=== PATIENT | male | born 1965 | race Caucasian/White ===

== ENCOUNTER 2018-06-26 06:36 | Inpatient (IN) ==
[2018-06-26] MEDS ORDERED: Morphine Inj 4 MG/ML Vial IV.PUSH ONE (07:12)
[2018-06-26] MEDS ORDERED: Diatrizoate Meglum/Diatrizoate Sod Liq 9 ML UDC PO ONE (07:12)
[2018-06-26] MEDS ORDERED: Sod Chloride 0.9% Inj 1,000 ML IV.SIG ONE (07:12)
--- NOTE | 2018-06-26 07:17 | ED ---
HPI General Chief Complaint: Abdominal Pain Stated Complaint: Abd pain Time Seen by Provider: 06/26/18 07:05 Source: patient Mode of arrival: ambulatory Limitations: no limitations History of Present Illness HPI narrative: The patient is a 52-year-old male with history of diverticulosis diagnosed last May and another flareup this past May currently on his third antibiotic for abdominal pain for over a week. Patient stated he ate some kind of a pizza and after that started having pain. His primary put him initially on Cipro without any relief after 3 days and then they added Bactrim and right now he is on Flagyl and Bactrim. Denies any fever or chills. Admits to nausea. Lower abdominal pain and decreased appetite. MD complaint: Reports abdominal pain Onset (ago): week(s) (1) Pain Consistency: constant Location: Reports LLQ Severity: moderate Severity scale (1-10): 5 Quality: Reports stabbing Radiation: Reports none Migration to: Reports no migration Relieving factors: nothing Associated symptoms: Reports nausea and hematuria; Denies vomiting, diarrhea, fever, chills, constipation, dysuria, hematemesis, hematochezia, melena, anorexia and syncope Related Data Home Medications Medication Instructions Recorded Confirmed No Known Home Medications 06/26/18 06/26/18 Allergies Allergy/AdvReac Type Severity Reaction Status Date / Time No Known Allergies Allergy Uncoded 08/21/12 16:02 Review of Systems ROS: all other systems reviewed are negative PMFSH Medical History Medical History Patient denies significant medical history (Acute) Surgical History Surgical History History of back surgery (Acute) History of cholecystectomy (Acute) Social History Social History Substance History: No History of Abuse Second Hand Smoke Exposure: No Smoking Status: Current every day smoker Tobacco Type: Cigarettes How Often Do You Have a Drink Containing Alcohol: Never Recent Travel in [facility] within the Last 8 Weeks: No Recent Out of Country Travel within the Last 8 Weeks: No Immunization History Tetanus Immunization: Unsure Exam Narrative Exam Narrative: GENERAL: Alert and oriented in no distress well-nourished well- developed SKIN: Focused skin assessment warm/dry. HEAD: Atraumatic. Normocephalic. EYES: Pupils equal and round. No scleral icterus. No injection or drainage. ENT: No nasal bleeding or discharge. Mucous membranes pink and moist. NECK: Trachea midline. No JVD. CARDIOVASCULAR: Regular rate and rhythm. No murmur appreciated. RESPIRATORY: No accessory muscle use. Clear to auscultation. Breath sounds equal bilaterally. GASTROINTESTINAL: Abdomen soft, Tenderness over the left lower quadrant. Hypoactive bowel sounds.. Hepatic and splenic margins not palpable. MUSCULOSKELETAL: No obvious deformities. No clubbing. No cyanosis. No edema. NEUROLOGICAL: Awake and alert. No obvious cranial nerve deficits. Motor grossly within normal limits. Normal speech. PSYCHIATRIC: Appropriate mood and affect; insight and judgment normal. Course Reevaluation(s) Reevaluation #1: Resting comfortably no distress. Notified about the findings on CT and plan of admitting. Time: 09:18 Initial Documented Vital Signs Temperature 97.6 F 06/26/18 06:38 Pulse Rate 73 06/26/18 06:38 Respiratory Rate 18 06/26/18 06:38 Blood Pressure 151/70 H 06/26/18 06:38 Pulse Oximetry 96 06/26/18 06:38 Last Documented Vital Signs Temperature 98.6 F 06/27/18 16:00 Pulse Rate 65 06/27/18 16:00 Respiratory Rate 17 06/27/18 16:00 Blood Pressure 124/62 06/27/18 16:00 Pulse Oximetry 95 06/27/18 16:00 Medical Decision Making [facility] Narrative Medical decision making narrative: Patient with acute sigmoid diverticulitis and small abscess formation that as per imaging is not drainable at this time. Patient to receive IV Zosyn to the fact that he was already on Cipro Flagyl and Bactrim. Will be admitted for further evaluation and surgical consultation. Not appearing septic. No signs of perforation at this time lactate within normal limits mildly elevated WBC. Liver enzymes are also elevated. He is afebrile with stable vitals. Cultures were obtained. Medical Screen Exam Complete: Yes Emergency Medical Condition: Yes Medical Records Medical records reviewed: Yes I reviewed the patient's medical records. Lab Data Lab results reviewed: Yes I reviewed the patient's lab results. Result diagrams: 06/27/18 04:59 06/27/18 10:37 Lab Results 06/26/18 06/26/18 06/26/18 Range/Units 07:00 07:00 07:25 WBC 11.5 H (4.0-11.0) th/mm3 RBC 4.70 (4.50-5.90) mil/mm3 Hgb 14.6 (13.0-17.0) gm/dL Hct 42.0 (39.0-51.0) % MCV 89.4 (80.0-100.0) fL MCH 31.1 (27.0-34.0) pg MCHC 34.8 (32.0-36.0) % RDW 14.3 (11.6-17.2) % Plt Count 464 H (150-450) th/mm3 MPV 7.6 (7.0-11.0) fL Neut % (Auto) 80.8 H (16.0-70.0) % Lymph % (Auto) 6.6 L (9.0-44.0) % [place] % (Auto) 9.0 H (0.0-8.0) % Eos % (Auto) 3.3 (0.0-4.0) % Baso % (Auto) 0.3 (0.0-2.0) % Neut # (Auto) 9.3 H (1.8-7.7) th/mm3 Lymph # (Auto) 0.8 L (1.0-4.8) th/mm3 [place] # (Auto) 1.0 H (0.0-0.9) th/mm3 Eos # (Auto) 0.4 (0.0-0.4) th/mm3 Baso # (Auto) 0.0 (0.0-0.2) th/mm3 WBC Differential . Differential Comment Auto diff final Sodium 132 L (136-145) meq/L Potassium 4.3 (3.5-5.1) meq/L Chloride 94 L (98-107) meq/L Carbon Dioxide 30.3 (21.0-32.0) meq/L Anion Gap 8 (5-15) meq/L BUN 13 (7-18) mg/dL Creatinine 1.13 (0.60-1.30) mg/dL Estimated GFR 68 L (>89) mL/min Random Glucose 177 H (74-106) mg/dL Lactic Acid 1.1 (0.4-2.0) mmol/L Calcium 9.0 (8.5-10.1) mg/dL Magnesium 2.4 (1.5-2.5) mg/dL Total Bilirubin 1.0 (0.2-1.0) mg/dL AST 53 H (15-37) U/L ALT 81 H (12-78) U/L Alkaline Phosphatase 285 H (45-117) U/L Total Protein 8.0 (6.4-8.2) g/dL Albumin 2.5 L (3.4-5.0) g/dL Lipase 102 (73-393) U/L Urine Color (Yellw/Straw) Urine Clarity (Clear) Urine pH (5.0-8.5) Ur Specific [place] (1.002-1.035) Urine Protein (Neg-Trace) mg/dL Urine Glucose (UA) (Negative) mg/dL Urine Ketones (Negative) mg/dL Urine Occult Blood (Negative) Urine Nitrate (Negative) Urine Bilirubin (Negative) Urine Urobilinogen (Less than 2) mg/dL Ur Leukocyte Esterase (Negative) Urine RBC (0-3) /hpf Urine WBC (0-5) /hpf Urine Mucus (Occasional) /lpf Micro UA Comment Ur Microscopic Review Urine Culture Comments 06/26/18 06/27/18 06/27/18 Range/Units 08:30 04:59 10:37 WBC 8.5 (4.0-11.0) th/mm3 RBC 4.21 L (4.50-5.90) mil/mm3 Hgb 12.9 L (13.0-17.0) gm/dL Hct 37.3 L (39.0-51.0) % MCV 88.6 (80.0-100.0) fL MCH 30.5 (27.0-34.0) pg MCHC 34.5 (32.0-36.0) % RDW 14.4 (11.6-17.2) % Plt Count 455 H (150-450) th/mm3 MPV 7.1 (7.0-11.0) fL Neut % (Auto) 69.4 (16.0-70.0) % Lymph % (Auto) 10.2 (9.0-44.0) % [place] % (Auto) 12.5 H (0.0-8.0) % Eos % (Auto) 7.0 H (0.0-4.0) % Baso % (Auto) 0.9 (0.0-2.0) % Neut # (Auto) 5.9 (1.8-7.7) th/mm3 Lymph # (Auto) 0.9 L (1.0-4.8) th/mm3 [place] # (Auto) 1.1 H (0.0-0.9) th/mm3 Eos # (Auto) 0.6 H (0.0-0.4) th/mm3 Baso # (Auto) 0.1 (0.0-0.2) th/mm3 WBC Differential . Differential Comment Auto diff final Sodium 137 (136-145) meq/L Potassium 3.8 (3.5-5.1) meq/L Chloride 99 (98-107) meq/L Carbon Dioxide 33.0 H (21.0-32.0) meq/L Anion Gap 5 (5-15) meq/L BUN 8 (7-18) mg/dL Creatinine 0.95 (0.60-1.30) mg/dL Estimated GFR 83 L (>89) mL/min Random Glucose 109 H (74-106) mg/dL Lactic Acid (0.4-2.0) mmol/L Calcium 8.3 L (8.5-10.1) mg/dL Magnesium (1.5-2.5) mg/dL Total Bilirubin (0.2-1.0) mg/dL AST (15-37) U/L ALT (12-78) U/L Alkaline Phosphatase (45-117) U/L Total Protein (6.4-8.2) g/dL Albumin (3.4-5.0) g/dL Lipase (73-393) U/L Urine Color Yellow (Yellw/Straw) Urine Clarity Clear (Clear) Urine pH 6.0 (5.0-8.5) Ur Specific [place] 1.008 (1.002-1.035) Urine Protein Negative (Neg-Trace) mg/dL Urine Glucose (UA) Negative (Negative) mg/dL Urine Ketones Negative (Negative) mg/dL Urine Occult Blood Negative (Negative) Urine Nitrate Negative (Negative) Urine Bilirubin Negative (Negative) Urine Urobilinogen Less than 2 (Less than 2) mg/dL Ur Leukocyte Esterase Trace H (Negative) Urine RBC 1 (0-3) /hpf Urine WBC Less than 1 (0-5) /hpf Urine Mucus Few H (Occasional) /lpf Micro UA Comment Culture not ind Ur Microscopic Review Not Reportable Urine Culture Comments Culture not ind Imaging Data Radiologist's impression: Abdomen/Pelvis CT 06/26/18 07:12 CONCLUSION: 1. Acute sigmoid diverticulitis with a small abscess adjacent to the sigmoid colon. This abscess is too small to accept a drainage catheter. 2. Prior cholecystectomy. Discharge Plan Discharge Disposition Patient Disposition: 30 Still Patient Discharge Condition Condition: Stable Discharge Details Diagnosis: Acute diverticulitis Physicians Team ED Provider: Rigoberto Fenton Primary Care Provider: Chau Aponte Attending Provider: Miko Fung Other Providers: Neri Myrick Discharge Interventions Interventions: ED Discharge Assessment Last Done: 06/26/18 11:09 Status ED Status: Left Department Discharge Information Discharge Date/Time: 06/26/18 11:09
[2018-06-26 07:47] LABS: Baso % (Auto) 0.3 % (0.0-2.0); Eos # (Auto) 0.4 th/mm3 (0.0-0.4); Eos % (Auto) 3.3 % (0.0-4.0); Hemoglobin 14.6 gm/dL (13.0-17.0); Lymph # (Auto) 0.8 th/mm3 (1.0-4.8); Lymph % (Auto) 6.6 % (9.0-44.0); Mean Corpuscular HGB Conc 34.8 % (32.0-36.0); Mean Corpuscular Hemoglobin 31.1 pg (27.0-34.0); Mean Corpuscular Volume 89.4 fL (80.0-100.0); Mean Platelet Volume 7.6 fL (7.0-11.0); Neut # (Auto) 9.3 th/mm3 (1.8-7.7); Neut % (Auto) 80.8 % (16.0-70.0); Platelet Count 464 th/mm3 (150-450); Red Cell Distribution Width 14.3 % (11.6-17.2); White Blood Count 11.5 th/mm3 (4.0-11.0)
[2018-06-26 08:12] LABS: Alanine Aminotransferase 81 U/L (12-78); Albumin 2.5 g/dL (3.4-5.0); Anion Gap 8 meq/L (5-15); Aspartate Aminotransferase 53 U/L (15-37); Blood Urea Nitrogen 13 mg/dL (7-18); Carbon Dioxide 30.3 meq/L (21.0-32.0); Chloride 94 meq/L (98-107); Glomerular Filtration Rate 68 mL/min (>89); Glucose,Random 177 mg/dL (74-106); Lipase 102 U/L (73-393); Magnesium 2.4 mg/dL (1.5-2.5); Sodium 132 meq/L (136-145)
[2018-06-26 08:14] LABS: Alkaline Phosphatase 285 U/L (45-117)
[2018-06-26 08:16] LABS: Potassium 4.3 meq/L (3.5-5.1)
--- NOTE | 2018-06-26 09:02 | CT ---
EXAM DATE: 06/26/2018 8:48 AM EST AGE/SEX: 52 years / Male INDICATIONS: Left lower abdominal pain. CLINICAL DATA: This is the patient's initial encounter. Patient reports that signs and symptoms have been present for 1 week and indicates a pain score of 6/10. MEDICAL/SURGICAL HISTORY: None. Cholecystectomy. Back surgery. ORAL CONTRAST: Prescribed oral contrast ingested. RADIATION DOSE: 9.90 CTDI (mGy) COMPARISON: [facility], CT UROGRAM, 12/13/2017. . TECHNIQUE: Multiple contiguous axial images were obtained through the abdomen and pelvis following b olus infusion of 95 ml Omnipaque 350 (iohexol) nonionic water-soluble contrast as a single exam dos e. Prescribed oral contrast ingested. Using automated exposure control and adjustment of the mA and/ or kV according to patient size, radiation dose was kept as low as reasonably achievable to obtain op timal diagnostic quality images. DICOM format image data is available electronically for review and comparison. FINDINGS: Lower Lungs: The visualized lower lungs are clear. Liver: The liver has a homogeneous density without space-occupying lesion. There is no dilation of th e biliary tree. Prior cholecystectomy. Spleen: Homogeneous density without enlargement. Pancreas: Unremarkable without mass or calcification. Kidneys: Normal in size and shape. No evidence of mass or hydronephrosis. Adrenal Glands: Unremarkable. Aorta: The aorta and proximal iliac vessels are grossly unremarkable without aneurysmal dilation. Bowel/Mesentery: There is an acute inflammatory process at the junction of the descending and sigmoi d colon. There is circumferential wall thickening with stranding of the pericolonic fat. A small extr aluminal fluid collection consistent with a small abscess is seen measured 3.7 x 1.0 cm. No perforati on observed. No obstruction.. Abdominal Wall: Intact. Retroperitoneum: No evidence of adenopathy in the retrocrural, para-aortic, or deep pelvic regions. Bladder: Contours are smooth. Reproductive Organs: No abnormal masses or calcifications seen. Inguinal: The inguinal region is unremarkable without evidence of adenopathy. Bony Structures: Unremarkable. CONCLUSION: 1. Acute sigmoid diverticulitis with a small abscess adjacent to the sigmoid colon. This abscess is too small to accept a drainage catheter. 2. Prior cholecystectomy. Electronically signed by: Jason Dennis MD 06/26/2018 9:01 AM EST
[2018-06-26] MEDS ORDERED: Piperacil/Tazo 4.5 GM Premix 4.5 GM/100 ML BAG IV.SIG ONE (09:18)
[2018-06-26 09:36] LABS: Bilirubin,Urine Negative (Negative); Clarity,Urine Clear (Clear); Color,Urine Yellow (Yellw/Straw); Glucose,Urine (UA) Negative (Negative); Leukocyte Esterase,Urine Trace (Negative); Mucus,Urine Few /lpf (Occasional); Nitrite,Urine Negative (Negative); Specific Gravity,Urine 1.008 (1.002-1.035)
[2018-06-26] MEDS ORDERED: Acetaminophen 325 MG Tablet PO PRN (10:20)
--- NOTE | 2018-06-26 11:57 | P.HPIM ---
History of Present Illness Primary Care Physician: Chau Aponte History of Present Illness: Mr Watson is a 52 y/o male with hx of diverticulitis, first episode in 05/2017 and second episode in 12/2017. Presented to the ED at [facility] on 06/26/18 with complaints of left sided abdominal pain that began about 8 days ago. He describes it as a sharp pain in the LLQ with abdominal pressure/bloating sensation. He initially thought he was obstructed/constipated and took a laxative last week with no relief. He was seen at Urgent care 6 days ago and was given a prescription for Cipro. The pain did not improve and he went back to the urgent care and was given prescription for Flagyl and Bactrim around 3-4 days ago but no improvement. He had a CT Abd/ Pelvis in the ED which noted acute sigmoid diverticulitis with a small abscess adjacent to the sigmoid colon, this abscess is too small to accept a drainage catheter and prior cholecystectomy. Pt also complains of testicular pain which has reportedly been present since his second episode of diverticulitis earlier this year. He reports that his urine has been "darker" but UA in the ED was negative for hematuria but he states that he has had issues recently with hematuria. He also complains of left sided testicular pain. He had a cystocope done because of the hematuria but he reports the cystoscope was negative. Past Medical Hx: Hx of diverticulitis Tobacco abuse Hx of anal fistula in 2017 Hx of colon polyps Diverticulosis Iron deficiency anemia Past Surgical Hx: Superficial fistulotomy in 11/[address] Piña Colonoscopy on 11/29/[address] Piña --> severe diverticulosis in the sigmoid and descending colon and a polyp in the sigmoid colon Cholecystectomy Lumbar surgery Knee Surgeries Shoulder surgery Family Hx: [place] Social Hx: (+) tobacco use, 40 pack year hx. Diagnosis (1) Acute diverticulitis: (2) Tobacco use: Inpatient Certification Inpatient Certification: I certify that the inpatient services were ordered in accordance with Medicare regulations governing the order. This includes certification that hospital inpatient services are reasonable and necessary and in the case of services not specified as inpatient-only under 42 CFR 419.22(n), that they are appropriately provided as inpatient services in accordance to with the 2-midnight benchmark under 43 CFR 412.3(e) Estimated Total Length of Stay (Days): 3 Plans for Post Hospital Care: Not yet determined Medications and Allergies Allergies Allergy/AdvReac Type Severity Reaction Status Date / Time No Known Allergies Allergy Uncoded 08/21/12 16:02 Home Medications Medication Instructions Recorded Confirmed Type No Known Home Medications 06/26/18 06/26/18 History Active Medications: Active Medications Acetaminophen (Tylenol) 650 mg PO Q4H PRN PRN Reason: Temp > 100.4 Sodium Chloride (Ns Inj) 1,000 mls @ 100 mls/hr IV.CONT .Q10H RAUL Piperacillin/Tazobactam/Dextrose (Zosyn 3.375 Gm Premix) 50 mls @ 100 mls/hr IV.SIG Q6H RAUL Ondansetron HCl (Zofran Inj) 4 mg IV.PUSH Q6H PRN PRN Reason: NAUSEA OR VOMITING Sodium Chloride (Ns Flush) 2 ml IV.FLUSH PRN PRN PRN Reason: FLUSH AFTER USING IV ACCESS Physical Exam Vital signs: Last Vital Signs Temp 97.6 F 06/26/18 06:38 Pulse 69 06/26/18 11:04 Resp 21 06/26/18 06:40 BP 115/71 06/26/18 11:04 Pulse Ox 98 06/26/18 11:04 Narrative: GENERAL: NAD, AAOx3 SKIN: Warm and dry. HEENT: Atraumatic. Normocephalic. Pupils equal and round. No scleral icterus. No injection or drainage. No nasal bleeding or discharge. Mucous membranes pink and moist. NECK: Trachea midline. No JVD. CARDIO: Regular RESP: CTA bilaterally. ABD: +BS, soft, nondistended, left sided tenderness to palpation, no guarding or rebound. EXT: Extremities without clubbing, cyanosis, or edema. No obvious deformities. NEURO: Awake and alert. No obvious cranial nerve deficits. Motor grossly within normal limits. Five out of 5 muscle strength in the arms and legs. Normal speech. PSYCH: Appropriate mood and affect; insight and judgment normal. Results Labs CBC & Chem 7: 06/26/18 07:00 06/26/18 07:00 Imaging Abdomen/Pelvis CT 06/26/18 07:12 CONCLUSION: 1. Acute sigmoid diverticulitis with a small abscess adjacent to the sigmoid colon. This abscess is too small to accept a drainage catheter. 2. Prior cholecystectomy. Caprini VTE Risk Assessment Caprini VTE Risk Assessment: No/Low Risk (score <= 1) Caprini Risk Assessment Model: Point Value = 1 Point Value = 2 Point Value = 3 Point Value = 5 Age 41-60 Minor surgery BMI > 25 kg/m2 Swollen legs Varicose veins or History of unexplained or recurrent spontaneous Oral contraceptives or hormone replacement Sepsis (< 1 month) Serious lung disease, including pneumonia (< 1 month) Abnormal pulmonary function Acute myocardial infarction Congestive heart failure (< 1 month) History of inflammatory bowel disease Medical patient at bed rest Age 61-74 Arthroscopic surgery Major open surgery (> 45 min) Laparoscopic surgery (> 45 min) Malignancy Confined to bed (> 72 hours) Immobilizing plaster cast Central venous access Age >= 75 History of VTE Family history of VTE Factor V Leiden Prothrombin [id number] Lupus anticoagulant Anticardiolipin antibodies Elevated serum homocysteine Heparin-induced thrombocytopenia Other congenital or acquired thrombophilia Stroke (< 1 month) Elective arthroplasty Hip, pelvis, or leg fracture Acute spinal cord injury (< 1 month) Prophylaxis Regimen: Total Risk Factor Score Risk Level Prophylaxis Regimen 0-1 Low Early ambulation 2 Moderate Order ONE of the following: *Sequential Compression Device (SCD) *Heparin 5000 units SQ BID 3-4 Higher Order ONE of the following medications: *Heparin 5000 units SQ TID *Enoxaparin/Lovenox 40 mg SQ daily (WT < 150 kg, CrCl > 30 mL/min) *Enoxaparin/Lovenox 30 mg SQ daily (WT < 150 kg, CrCl > 10-29 mL/min) *Enoxaparin/Lovenox 30 mg SQ BID (WT < 150 kg, CrCl > 30 mL/min) AND/OR *Sequential Compression Device (SCD) 5 or more Highest Order ONE of the following medications: *Heparin 5000 units SQ TID (Preferred with Epidurals) *Enoxaparin/Lovenox 40 mg SQ daily (WT < 150 kg, CrCl > 30 mL/min) *Enoxaparin/Lovenox 30 mg SQ daily (WT < 150 kg, CrCl > 10-29 mL/min) *Enoxaparin/Lovenox 30 mg SQ BID (WT < 150 kg, CrCl > 30 mL/min) AND *Sequential Compression Device (SCD) Assessment and Plan Assessment (1) Acute diverticulitis: Code(s): K57.92 - Diverticulitis of intestine, part unspecified, without perforation or abscess without bleeding Status: Acute (2) Tobacco use: Code(s): Z72.0 - Tobacco use Status: Chronic Plan Acute diverticulitis - Pt is a 52 y/o male with hx of diverticulitis, first episode in 05/2017 and second episode in 12/2017. He had a previous colonoscopy on 11/29/[address] Piña which noted severe diverticulosis in the sigmoid and descending colon and a polyp in the sigmoid colon. He presented to the ED at [facility] on 06/26/18 with complaints of left sided abdominal pain that began about 8 days ago. He describes it as a sharp pain in the LLQ with abdominal pressure/bloating sensation. He initially thought he was obstructed/constipated and took a laxative last week with no relief. He was seen at Urgent care 6 days ago and was given a prescription for Cipro. The pain did not improve and he went back to the urgent care and was given prescription for Flagyl and Bactrim around 3-4 days ago but no improvement. This is what prompted his evaluated in the ED. - Labs noted an elevated WBC count at admission - He had a CT Abd/Pelvis in the ED which noted acute sigmoid diverticulitis with a small abscess adjacent to the sigmoid colon, this abscess is too small to accept a drainage catheter and prior cholecystectomy. - Pt was given Zosyn in the ED and we will continue this at 3.375mg Q6H dosing. - Give IVF - Ok for liquid diet for now - Pain control PRN - We will consult CRS, pt previously established with Dr. Piña. - Supportive care Tobacco use - Discussed tobacco cessation - Nicotine patch Testicular pain Hx of hematuria - Pt also complains of left sided testicular pain which has reportedly been present since his second episode of diverticulitis earlier this year. - He reports that his urine has been "darker" but UA in the ED was negative for hematuria but he states that he has had issues earlier this year with hematuria. - He had a cystocope done because of the hematuria but he reports the cystoscope was negative. - Its unclear if this left sided testicular pain may be related to referred pain from his diverticulitis vs. other. Attending Attestation Patient examined. Assessment and plan formulated with Rachel Vences PA-C. I agree with the above. complicated diverticulitis. consult CRS cont abx/pain meds/ivf/liquid diet.
[2018-06-26] MEDS ORDERED: Influenza (Quadrivalent) Vaccine 0.5 ML Syringe IM ONE (13:15)
[2018-06-26] MEDS: Sod Chloride 0.9% Inj 1,000 ML IV.CONT SCH (13:32)
[2018-06-26] MEDS: Piperacil/Tazo 3.375 GM Premix 50 ML IV.SIG SCH (18:37)
[2018-06-27] MEDS: Piperacil/Tazo 3.375 GM Premix 50 ML IV.SIG SCH ×6 (00:06→23:26)
[2018-06-27] MEDS: Sod Chloride 0.9% Inj 1,000 ML IV.CONT SCH ×3 (00:06→18:34)
[2018-06-27 05:24] LABS: Baso # (Auto) 0.1 th/mm3 (0.0-0.2); Baso % (Auto) 0.9 % (0.0-2.0); Eos # (Auto) 0.6 th/mm3 (0.0-0.4); Hematocrit 37.3 % (39.0-51.0); Hemoglobin 12.9 gm/dL (13.0-17.0); Lymph # (Auto) 0.9 th/mm3 (1.0-4.8); Lymph % (Auto) 10.2 % (9.0-44.0); Mean Corpuscular HGB Conc 34.5 % (32.0-36.0); Mean Corpuscular Hemoglobin 30.5 pg (27.0-34.0); Mean Corpuscular Volume 88.6 fL (80.0-100.0); Mean Platelet Volume 7.1 fL (7.0-11.0); Mono # (Auto) 1.1 th/mm3 (0.0-0.9); Mono % (Auto) 12.5 % (0.0-8.0); Neut # (Auto) 5.9 th/mm3 (1.8-7.7); Neut % (Auto) 69.4 % (16.0-70.0); Platelet Count 455 th/mm3 (150-450); Red Blood Count 4.21 mil/mm3 (4.50-5.90); Red Cell Distribution Width 14.4 % (11.6-17.2); White Blood Count 8.5 th/mm3 (4.0-11.0)
[2018-06-27 11:56] LABS: Calcium 8.3 mg/dL (8.5-10.1); Potassium 3.8 meq/L (3.5-5.1)
--- NOTE | 2018-06-27 13:40 | P.PNIM ---
Subjective Interval history: Pt feeling better today Less pain Passed a small loose stool, no melena or BRBPR Tolerating full liquid diet Physical Exam Vital signs: Last Vital Signs Temp 99.0 F 06/27/18 12:00 Pulse 58 L 06/27/18 12:00 Resp 17 06/27/18 12:00 BP 111/63 06/27/18 12:00 Pulse Ox 96 06/27/18 12:00 Narrative: GENERAL: NAD, AAOx3 CARDIO: Regular RESP: CTA bilaterally. ABD: +BS, soft, nondistended, left sided tenderness to palpation, no guarding or rebound. EXT: No edema. No obvious deformities. Results Labs CBC & Chem 7: 06/27/18 04:59 06/27/18 10:37 Imaging Abdomen/Pelvis CT 06/26/18 07:12 CONCLUSION: 1. Acute sigmoid diverticulitis with a small abscess adjacent to the sigmoid colon. This abscess is too small to accept a drainage catheter. 2. Prior cholecystectomy. Assessment and Plan Assessment (1) Acute diverticulitis: Code(s): K57.92 - Diverticulitis of intestine, part unspecified, without perforation or abscess without bleeding Status: Acute (2) Tobacco use: Code(s): Z72.0 - Tobacco use Status: Chronic Plan Acute diverticulitis - Pt is a 52 y/o male with hx of diverticulitis, first episode in 05/2017 and second episode in 12/2017. He had a previous colonoscopy on 11/29/[address] Piña which noted severe diverticulosis in the sigmoid and descending colon and a polyp in the sigmoid colon. He presented to the ED at [facility] on 06/26/18 with complaints of left sided abdominal pain that began about 8 days ago. He describes it as a sharp pain in the LLQ with abdominal pressure/bloating sensation. He initially thought he was obstructed/constipated and took a laxative last week with no relief. He was seen at Urgent care 6 days ago and was given a prescription for Cipro. The pain did not improve and he went back to the urgent care and was given prescription for Flagyl and Bactrim around 3-4 days ago but no improvement. This is what prompted his evaluated in the ED. - Labs noted an elevated WBC count at admission - He had a CT Abd/Pelvis in the ED which noted acute sigmoid diverticulitis with a small abscess adjacent to the sigmoid colon, this abscess is too small to accept a drainage catheter and prior cholecystectomy. - Pt was given Zosyn in the ED and we will continue this at 3.375mg Q6H dosing. - IVF - Consult to Colorectal Surgery - Full liquid diet until seen by CRS - Pain control PRN - Supportive care Tobacco use - Discussed tobacco cessation - Nicotine patch Testicular pain Hx of hematuria - Pt also complains of left sided testicular pain which has reportedly been present since his second episode of diverticulitis earlier this year. - He reports that his urine has been "darker" but UA in the ED was negative for hematuria but he states that he has had issues earlier this year with hematuria. - He had a cystocope done because of the hematuria but he reports the cystoscope was negative. - Its unclear if this left sided testicular pain may be related to referred pain from his diverticulitis vs. other. Attending Attestation Patient examined. Assessment and plan formulated with Rachel Vences PA-C. I agree with the above. pt with complicated diverticulitis. recurrent. cont abx. ivf. liquids CRS consultation pending. Progress Note: Quality VTE Deep Vein Thrombosis/Pulmonary Embolism Present on Admission: No
--- NOTE | 2018-06-27 23:22 | MB ---
cc: Neri Myrick MD, Andrew H MD DATE: 06/27/2018 REASON FOR CONSULTATION: Recurrent diverticulitis. HISTORY OF PRESENT ILLNESS: Mr. Whiting is a pleasant 52-year-old male seen previously by Dr. Piña for some anorectal problems. Last colonoscopy was pretty unremarkable. He was diagnosed with some diverticular disease last May. He appeared to have another flare-up earlier this year in December. The patient currently has had 2 or 3 weeks of abdominal pain, mostly in the left lower quadrant treated as an outpatient with antibiotics. The pain has been fairly severe, but has gotten somewhat better with treatment. He was initially treated with Cipro and then Bactrim and Flagyl were added. Denies any significant nausea or vomiting. No fever or chills. The pain apparently had not subsided sufficiently so he came to the emergency room for evaluation. CT scan showed acute diverticulitis with a small microperforation adjacent to the sigmoid colon. He was admitted for additional evaluation and antibiotics. PAST MEDICAL HISTORY: Please see his history and physical and consult other ER visits for more complete past medical and surgical history. PERTINENT PHYSICAL EXAMINATION: GENERAL: A very pleasant large male in no acute distress. HEENT: Remarkable for pink, dry membranes. Nonicteric sclerae. NECK: Supple without gross adenopathy. CHEST: Diminished in the bases, clear anteriorly. HEART: Regular rhythm. ABDOMEN: Soft, benign. There is some tenderness in the lower left abdomen. No rebound or guarding or any masses noted. EXTREMITIES: Show no cyanosis or clubbing and no significant pedal edema. LABORATORY STUDIES: White count has gone down to 8.5, hemoglobin down to 12.9, platelet count 455,000. Electrolytes remarkable for a BUN of 8, creatinine of 0.95. Alkaline phosphatase, SGOT and SGPT are slightly elevated with a normal bilirubin. Albumin is low at 2.5. CT scan was reviewed showing some diverticular disease with a small microperforation adjacent to the sigmoid colon, too small for percutaneous drainage. A prior cholecystectomy was noted. IMPRESSION: A 52-year-old male with multiple attacks of left lower quadrant pain, presumed to be diverticular in origin. We would like to review his prior CT scans, see if he has had consistent inflammation of the rectosigmoid. Last colonoscopy was reportedly pretty unremarkable, seems to responding to present bowel rest and stronger IV antibiotics, see if we cannot cool him off with appropriate antibiotics and slowly advance his diet. If he continues to do well, could potentially be continued in outpatient treatment with oral antibiotics and then followed up in the office by Dr. Piña for possible elective surgery if needed. Neri Myrick MD AHR/ct , 10:55 PM , 11:03 PM
[2018-06-28 05:36] LABS: Baso # (Auto) 0.1 th/mm3 (0.0-0.2); Baso % (Auto) 0.9 % (0.0-2.0); Eos # (Auto) 0.3 th/mm3 (0.0-0.4); Hematocrit 38.2 % (39.0-51.0); Hemoglobin 12.9 gm/dL (13.0-17.0); Lymph # (Auto) 0.8 th/mm3 (1.0-4.8); Lymph % (Auto) 9.7 % (9.0-44.0); Mean Corpuscular HGB Conc 33.7 % (32.0-36.0); Mean Corpuscular Hemoglobin 30.3 pg (27.0-34.0); Mean Corpuscular Volume 89.9 fL (80.0-100.0); Mean Platelet Volume 7.2 fL (7.0-11.0); Mono # (Auto) 1.1 th/mm3 (0.0-0.9); Mono % (Auto) 12.9 % (0.0-8.0); Neut # (Auto) 6.2 th/mm3 (1.8-7.7); Neut % (Auto) 72.5 % (16.0-70.0); Platelet Count 502 th/mm3 (150-450); Red Blood Count 4.25 mil/mm3 (4.50-5.90); Red Cell Distribution Width 14.7 % (11.6-17.2); White Blood Count 8.5 th/mm3 (4.0-11.0)
[2018-06-28 06:12] LABS: Alanine Aminotransferase 59 U/L (12-78); Albumin 2.1 g/dL (3.4-5.0); Anion Gap 7 meq/L (5-15); Aspartate Aminotransferase 42 U/L (15-37); Blood Urea Nitrogen 5 mg/dL (7-18); Calcium 8.1 mg/dL (8.5-10.1); Carbon Dioxide 29.5 meq/L (21.0-32.0); Chloride 102 meq/L (98-107); Glomerular Filtration Rate 82 mL/min (>89); Glucose,Random 94 mg/dL (74-106); Sodium 138 meq/L (136-145)
[2018-06-28 06:14] LABS: Alkaline Phosphatase 243 U/L (45-117); Total Protein 6.4 g/dL (6.4-8.2)
[2018-06-28] MEDS: Piperacil/Tazo 3.375 GM Premix 50 ML IV.SIG SCH ×2 (06:34→11:10)
[2018-06-28] MEDS: Sod Chloride 0.9% Inj 1,000 ML IV.CONT SCH (09:29)
--- NOTE | 2018-06-28 11:11 | P.DS ---
DS: Providers Date of admission: 06/26/18 10:01 Primary care physician: Chau Aponte Consults: 06/27/18 09:35 Consult to Colorectal Surgery Routine Consulting Provider: Neri Myrick Preferred Game Designer:: Neri Myrick Patient known to:: Madyson Piña Reason for Consultation: Recurrent Diverticulitis with small abscess Notified:: Office Spoke with:: Susan Date Notified:: 06/27/18 Time Notified:: 10:26 Ordering Provider: SUNNY Brief History from admission: Mr Watson is a 52 y/o male with hx of diverticulitis, first episode in 05/2017 and second episode in 12/2017. Presented to the ED at [facility] on 06/26/18 with complaints of left sided abdominal pain that began about 8 days ago. He describes it as a sharp pain in the LLQ with abdominal pressure/bloating sensation. He initially thought he was obstructed/constipated and took a laxative last week with no relief. He was seen at Urgent care 6 days ago and was given a prescription for Cipro. The pain did not improve and he went back to the urgent care and was given prescription for Flagyl and Bactrim around 3-4 days ago but no improvement. He had a CT Abd/ Pelvis in the ED which noted acute sigmoid diverticulitis with a small abscess adjacent to the sigmoid colon, this abscess is too small to accept a drainage catheter and prior cholecystectomy. Pt also complains of testicular pain which has reportedly been present since his second episode of diverticulitis earlier this year. He reports that his urine has been "darker" but UA in the ED was negative for hematuria but he states that he has had issues recently with hematuria. He also complains of left sided testicular pain. He had a cystocope done because of the hematuria but he reports the cystoscope was negative. Past Medical Hx: Hx of diverticulitis Tobacco abuse Hx of anal fistula in 2017 Hx of colon polyps Diverticulosis Iron deficiency anemia Past Surgical Hx: Superficial fistulotomy in 11/[address] Piña Colonoscopy on 11/29/[address] Piña --> severe diverticulosis in the sigmoid and descending colon and a polyp in the sigmoid colon Cholecystectomy Lumbar surgery Knee Surgeries Shoulder surgery Family Hx: [place] Social Hx: (+) tobacco use, 40 pack year hx. DS: Diagnosis Discharge Diagnosis (1) Acute diverticulitis: Status: Acute (2) Tobacco use: Status: Chronic DS: Summary Acute diverticulitis - Pt is a 52 y/o male with hx of diverticulitis, first episode in 05/2017 and second episode in 12/2017. He had a previous colonoscopy on 11/29/[address] Piña which noted severe diverticulosis in the sigmoid and descending colon and a polyp in the sigmoid colon. He presented to the ED at [facility] on 06/26/18 with complaints of left sided abdominal pain that began about 8 days ago. He describes it as a sharp pain in the LLQ with abdominal pressure/bloating sensation. He initially thought he was obstructed/constipated and took a laxative last week with no relief. He was seen at Urgent care 6 days ago and was given a prescription for Cipro. The pain did not improve and he went back to the urgent care and was given prescription for Flagyl and Bactrim around 3-4 days ago but no improvement. This is what prompted his evaluated in the ED. - Labs noted an elevated WBC count at admission - He had a CT Abd/Pelvis in the ED which noted acute sigmoid diverticulitis with a small abscess adjacent to the sigmoid colon, this abscess is too small to accept a drainage catheter and prior cholecystectomy. - Pt was given Zosyn in the ED and we will continue this at 3.375mg Q6H dosing. - IVF - Consult to Colorectal Surgery, appreciate input. No need for immediate surgery will need to follow up after DC for close follow up and possible elective surgery - Full liquid diet - Pain control PRN - Supportive care Tobacco use - Discussed tobacco cessation - Nicotine patch Testicular pain Hx of hematuria - Pt also complains of left sided testicular pain which has reportedly been present since his second episode of diverticulitis earlier this year. - He reports that his urine has been "darker" but UA in the ED was negative for hematuria but he states that he has had issues earlier this year with hematuria. - He had a cystocope done because of the hematuria but he reports the cystoscope was negative. - Its unclear if this left sided testicular pain may be related to referred pain from his diverticulitis vs. other. testicular pain has improved with current treatment - likely testicular pain was referred pain from diverticulitis Patient reports feeling much better is asking to be discharged home will DC on cipro/Flagyl for a total of 14 days Time Spent with Patient Total time spent providing and/or coordinating discharge services: Quality: VTE Deep Vein Thrombosis/Pulmonary Embolism Present on Admission: No Exam Narrative Exam Narrative: GENERAL: NAD, AAOx3 CARDIO: Regular RESP: CTA bilaterally. ABD: +BS, soft, nondistended, mild left sided tenderness to palpation, no guarding or rebound. EXT: No edema. No obvious deformities. Results Labs on day of discharge: Labs from last 24 hours 06/28/18 06/28/18 06/27/18 04:44 04:44 10:37 WBC 8.5 RBC 4.25 L Hgb 12.9 L Hct 38.2 L MCV 89.9 MCH 30.3 MCHC 33.7 RDW 14.7 Plt Count 502 H MPV 7.2 Neut % (Auto) 72.5 H Lymph % (Auto) 9.7 [place] % (Auto) 12.9 H Eos % (Auto) 4.0 Baso % (Auto) 0.9 Neut # (Auto) 6.2 Lymph # (Auto) 0.8 L [place] # (Auto) 1.1 H Eos # (Auto) 0.3 Baso # (Auto) 0.1 WBC Differential . Differential Comment Auto diff final Sodium 138 137 Potassium 4.0 3.8 Chloride 102 99 Carbon Dioxide 29.5 33.0 H Anion Gap 7 5 BUN 5 L 8 Creatinine 0.96 0.95 Estimated GFR 82 L 83 L Random Glucose 94 109 H Calcium 8.1 L 8.3 L Total Bilirubin 0.6 AST 42 H ALT 59 Alkaline Phosphatase 243 H Total Protein 6.4 D Albumin 2.1 L Preliminary micro results at discharge 06/26/18 07:25 Aerobic Blood Culture - Preliminary Blood - Peripheral No growth in 2 days Anaerobic Blood Culture - Preliminary No growth in 2 days 06/26/18 07:30 Aerobic Blood Culture - Preliminary Blood - Peripheral No growth in 2 days Impressions ITS Impressions Abdomen/Pelvis CT 06/26/18 07:12 CONCLUSION: 1. Acute sigmoid diverticulitis with a small abscess adjacent to the sigmoid colon. This abscess is too small to accept a drainage catheter. 2. Prior cholecystectomy.
[2018-06-28 12:17] VITALS: BP 130/67; PULSE 61; RESP 18; TEMP 98.9; O2SAT 97
== END 2018-06-28 16:55 | disposition home or self-care (01) ==
LOC: NEPC 06:36 → NEDA 10:01 → N06 11:12
PROVIDERS: ADMIT Hospitalist; ATTEND Hospitalist
DX: F17.210 Nicotine dependence, cigarettes, uncomplicated; N50.812 Left testicular pain; Z86.010 Personal history of colon polyps; K57.20 Diverticulitis of large intestine with perforation and abscess without bleeding; Z23 Encounter for immunization